=== PATIENT | female | born 1960 | race Caucasian/White ===

== ENCOUNTER 2017-02-01 09:01 | Day surgery (SDC) | payer BC ==
[2017-01-19 08:30] VITALS: BMI 26.4
[2017-02-01] MEDS ORDERED: Lactated Ringer's 1,000 ML IV ONE (11:40)
[2017-02-01] MEDS ORDERED: Midazolam 2 MG/2 ML VIAL ONE (11:45)
[2017-02-01] MEDS ORDERED: Propofol 10 mg/ml Inj (20 ML) ONE (11:46)
[2017-02-01] MEDS ORDERED: HYDROmorphone 0.5 mg/0.5 ml ISec IVP PRN (12:12)
--- NOTE | 2017-02-01 12:18 | PCM.SURG1 ---
Surgeon's Initial Post Op Note - Surgeon's Notes Surgeon: Dr. Toledo Radio Interference Investigator: None Type of Anesthesia: General LMA Anesthesia Administered By: Dr Khalil Pre-Operative Diagnosis: 56 yo with endometrial polyp, postmenopausal bleeding Operative Findings: AV uterus 8 wks Post-Operative Diagnosis: sAME ABOVE Operation Performed: Hysteroscopy Myosure D and C Specimen/Specimens Removed: EMC, ECC, Endometrial polyp Estimated Blood Loss: EBL {In ML}: 10 Blood Products Given: N/A Drains Used: No Drains Post-Op Condition: Good Date of Surgery/Procedure: 02/01/17 Time of Surgery/Procedure: 12:18
[2017-02-01 14:06] VITALS: O2SAT 97
[2017-02-01 14:41] VITALS: BP 110/63; PULSE 54; RESP 15; TEMP 98.4
--- NOTE | 2017-02-01 21:51 | OP ---
PROCEDURE DATE: 02/01/2017 PREOPERATIVE DIAGNOSES: A 56-year-old female with endometrial polyp and postmenopausal bleeding. POSTOPERATIVE DIAGNOSES: A 56-year-old female with endometrial polyp and postmenopausal bleeding. PROCEDURE: Hysteroscopy and MayoSure D and C. SURGEON: Alexa Toledo MD ANESTHESIOLOGIST: Dr. Khalil TYPE OF ANESTHESIA: General LMA. FINDINGS: Anteverted uterus approximately 8 weeks' gestation, noted to have an endometrial polyp. COMPLICATIONS: None. ESTIMATED BLOOD LOSS: Approximately 10 mL. IV FLUID: 500 mL. INPUT AND OUTPUT: 100 mL. SPECIMEN: EMC, ECC, and polyp. DESCRIPTION OF PROCEDURE: The patient was informed of the risk factors, benefits, and alternatives of the procedure. Risk factors included infection, bleeding, and damage of surrounding organs and tissues, complications from anesthesia, and possible . After informed consent was obtained, she was then taken to the operating room, prepped and draped in normal sterile fashion, placed in dorsal lithotomy position. A weighed speculum was placed into the vagina. The anterior lip of the cervix was grasped with a single-tooth tenaculum. Uterus was gently sounded to approximately 8 cm. Upon complete uterine dilation, the scope was then placed. It was noted that she had an endometrial polyp. In that particularly instance, the MayoSure Lite device was then activated. Under direct visualization, the endometrial polyp was removed and submitted to pathology. One that was done, the hysteroscope was then removed. A fractional D and C was then performed. EMC and ECC was performed and submitted to pathology. Upon completion, all instruments were removed from the vagina. Instruments and lap counts were correct x2. The patient was then taken to recovery in stable condition and instructed to follow up in the office in approximately two weeks. Alexa Toledo MD
== END 2017-02-01 15:11 | disposition home or self-care (01) ==
LOC: C.SDS 09:01
PROVIDERS: ATTEND Obstetrics & Gynecology
DX: N84.0 Polyp of corpus uteri (principal); N95.0 Postmenopausal bleeding; I10 Essential (primary) hypertension
CPT/HCPCS: 58558; 88305; J2001; J2250; J2704; J3010; J7120